=== PATIENT | female | born 1985 | race African-American/Black ===

== ENCOUNTER 2019-11-01 17:41 | Emergency (ER) | payer OTHER ==
--- NOTE | 2019-11-01 17:45 | PDOC ---
Rapid Medical Evaluation Time Seen by Provider: 11/01/19 17:43 Medical Evaluation: Allergies Allergy/AdvReac Type Severity Reaction Status Date / Time No Known Allergies Allergy Verified 05/19/16 09:26 11/01/19 17:43 33 year old female 19 weeks with vaginal bleeding after sexual intercourse. PE: nonttp to abdominal Plan: [facility]
[2019-11-01 17:47] VITALS: TEMP 98; BMI 38.0
--- NOTE | 2019-11-01 18:28 | PDOC ---
History of Present Illness - General Chief Complaint: Vaginal Bleeding Stated Complaint: 4 MTHS /VAGINAL BLEEDING Time Seen by Provider: 11/01/19 17:43 History Source: Patient Exam Limitations: No Limitations - History of Present Illness Initial Comments: 11/01/19 18:25 Patient is a 33-year-old female who is G1, P0, LMP 06/21/19, at 19 weeks complaining of vaginal bleeding. States that she and her boyfriend were having sexual intercourse when she started bleeding. Notes it was spotting. She denies any pain. Blood type is unknown. PMD: [facility] PMHX: neg PSOCHX: neg ALL: NKDA Review of Systems: GENERAL/CONSTITUTIONAL: No fever or chills. No weakness. No weight change. HEAD, EYES, EARS, NOSE AND THROAT: No change in vision. No ear pain or discharge. No sore throat. CARDIOVASCULAR: No chest pain or shortness of breath. RESPIRATORY: No cough, wheezing, or hemoptysis. GASTROINTESTINAL: No nausea, vomiting, diarrhea or constipation. No rectal bleeding. GENITOURINARY: No dysuria, frequency, or change in urination. MUSCULOSKELETAL: No joint or muscle swelling or pain. No neck or back pain. SKIN AND BREASTS: No rash or easy bruising. NEUROLOGIC: No headache, vertigo, loss of consciousness, or loss of sensation. PSYCHIATRIC: No depression or anxiety. ENDOCRINE: No increased thirst. No abnormal weight change. HEMATOLOGIC/LYMPHATIC: No anemia, easy bleeding, or history of blood clots. ALLERGIC/IMMUNOLOGIC: No hives or skin allergy. No latex allergy. GENERAL: [The patient is awake, alert, and fully oriented, in no acute distress.] HEAD: [Normal with no signs of trauma.] EYES: [Pupils equal, round and reactive to light, extraocular movements intact, sclera anicteric, conjunctiva clear.] ENT: [Ears normal, nares patent, oropharynx clear without exudates. Moist mucous membranes.] NECK: [Normal range of motion, supple without lymphadenopathy, JVD, or masses.] LUNGS: [Breath sounds equal, clear to auscultation bilaterally. No wheezes, and no crackles.] HEART: [Regular rate and rhythm, normal S1 and S2 without murmur, rub.] ABDOMEN: [Soft, nontender, normoactive bowel sounds. No guarding, no rebound. No masses.] PELVIS: deferred EXTREMITIES: [Normal range of motion, no edema. No clubbing or cyanosis. No cords, erythema, or tenderness.] NEUROLOGICAL: [Cranial nerves II through XII grossly intact. Normal speech, normal gait.] PSYCH: [Normal mood, normal affect.] SKIN: [Warm, Dry, normal turgor, no rashes or lesions noted.] Past History - Medical History Allergies/Adverse Reactions: Allergies Allergy/AdvReac Type Severity Reaction Status Date / Time No Known Allergies Allergy Verified 11/01/19 17:47 Home Medications: Ambulatory Orders Albuterol Sulfate Inhaler - [Ventolin HFA Inhaler -] 1 - 2 inh PO Q4H #1 inhaler 05/19/16 Azithromycin [Zithromax 250mg Tablets -] 250 mg PO UTDICT #6 tab 05/19/16 COPD: No - Psycho-Social/Smoking History Smoking History: Never smoked Have you smoked in the past 12 months: Yes Number of Cigarettes Smoked Daily: 3 'Breaking Loose' booklet given: 05/19/16 - Substance Abuse Hx (Audit-C & DAST Scrn) How often the patient has a drink containing alcohol: Never Score: In Men: 4 or > Positive; In Women: 3 or > Positive: 0 Screen Result (Pos requires Nsg. Audit-10AR): Negative *Physical Exam - Vital Signs Last Vital Signs Temp Pulse Resp BP Pulse Ox 98 F 100 H 18 130/72 99 11/01/19 17:44 11/01/19 17:44 11/01/19 17:44 11/01/19 17:44 11/01/19 17:44 ED Treatment Course - LABORATORY CBC & Chemistry Diagram: 11/01/19 18:30 11/01/19 18:30 Medical Decision Making - Medical Decision Making 11/01/19 18:25 Patient is a 33-year-old female who is G1, P0, LMP 06/21/19, at 19 weeks complaining of vaginal bleeding. States that she and her boyfriend were having sexual intercourse when she started bleeding. Notes it was spotting. She denies any pain. Blood type is unknown. 11/01/19 19:04 Selected Entries 11/01/19 18:50 Pulse Rate [ 89 Left Radial] Respiratory 16 Rate Blood Pressure 104/56 L [Right Arm] O2 Sat by Pulse 100 Oximetry (%) Patient Full Name: CHERIE ALCANTARA Patient Accession No: [id number] Patient : 1985 Reason for Exam: vag bleeding Referring Physician: DAVID BAY Patient Name: MARICRUZ CRESPO THIS IS A PRELIMINARY REPORT FROM IMAGING SENIOR UNDERWRITING ASSISTANT DATE OF SERVICE: 2019-11-01 17:47:12 IMAGES: 14 EXAM: LIMITED US HISTORY: Vaginal bleeding. COMPARISON: None. Preliminary findings/impression: Single live intrauterine gestation, in cephalic position, with heart rate 144 bpm. Estimated gestational age by ultrasound criteria is 18 weeks and 6 days, with estimated gestational age by clinical parameters of 18 weeks and 6 days. THIS DOCUMENT HAS BEEN ELECTRONICALLY SIGNED Hector Young MD 11/01/2019 19:29 EST M.D. Please call Imaging [employer] Ha[employer] Operator [phone] ([phone] with questions. INTERPRETING RADIOLOGIST: Hector Young MD Electronically Signed: Nov 01, 2019 07:30PM EDT I discussed the physical exam findings, ancillary test results and final diagnoses with the patient. I answered all of the patient's questions. The patient was satisfied with the care received and felt comfortable with the discharge plan and treatment plan. The Patient agrees to follow up with the primary care physician within 24-72 hours. Discharge - Discharge Information Problems reviewed: Yes Clinical Impression/Diagnosis: Postcoital bleeding Disposition: HOME - Follow up/Referral - Patient Discharge Instructions Patient Printed Discharge Instructions: DI for Vaginal Bleeding During P regnancy Additional Instructions: Your Discharge Instructions: You must call primary care physician within 24 hours to arrange follow-up. Return to the Emergency Department with any new, persistent or worsening symptoms, for fever, chills, SOB, dizziness or any other concerning changes that may occur. Refrain from sexual activity until seen by OB. Call for an appointment. - Post Discharge Activity
[2019-11-01 18:51] VITALS: BP 104/56; PULSE 89
[2019-11-01 18:51] LABS: BASO % 0.5 % (0-2.0); EOS % 1.2 % (0-4.5); HEMATOCRIT 37.4 % (32.4-45.2); HEMOGLOBIN 12.3 GM/dL (10.7-15.3); LYMPH % 14.6 % (8-40); MCH 26.9 pg (25.7-33.7); MEAN CELL VOLUME 81.6 fl (80-96); MEAN PLT VOLUME 9.9 fl (7.5-11.1); MONO % 7.8 % (3.8-10.2); NEUT % 75.9 % (42.8-82.8); PLATELET COUNT 207 K/MM3 (134-434); RBC 4.59 M/mm3 (3.60-5.2); RDW 13.8 % (11.6-15.6); WHITE BLOOD COUNT 12.3 K/mm3 (4.0-10.0)
[2019-11-01 19:20] LABS: ALBUMIN 3.2 g/dl (3.4-5.0); BILIRUBIN,TOTAL 0.3 mg/dL (0.2-1); BLOOD UREA NITROGEN 12.2 mg/dL (7-18); CALCIUM 9.7 mg/dL (8.5-10.1); CREATININE 0.7 mg/dL (0.55-1.3); POTASSIUM 4.1 mmol/L (3.5-5.1); TOT PROT 6.9 g/dl (6.4-8.2)
== END 2019-11-01 19:50 | disposition home or self-care (01) ==
LOC: JER 17:41
DX: O20.9 Hemorrhage in early pregnancy, unspecified (principal); Z3A.19 19 weeks gestation of pregnancy
CPT/HCPCS: 36415; 76815-TC; 80053; 85025; 86850; 86900; 86901; 99284-25